=== PATIENT | female | born 1955 | race Caucasian/White ===

== ENCOUNTER 2021-04-21 12:59 | Emergency (ER) | payer MEDICARE, OTHER ==
[~2021-04-21] VITALS: Ht 160 cm; Wt 87.0 kg
[2021-04-21 13:05] VITALS: BP 117/78
--- NOTE | 2021-04-21 14:12 | RAD ---
CT Head W/O Contrast: History: Head and neck pain Comparison: none Axial images were obtained without contrast. The leon and white matter appears normal and symmetrical for the patients age. There is no mass effe ct, extraaxial fluid collections or hydrocephalus. There is no gross bleed. There is no focal loss of leon-white matter distinction to suggest acute ischemia, i.e. stroke. Impression: No acute findings. End impression CT C-Spine without contrast: Clinical History: Reason: neck pain / Spl. Instructions: / History: Technique: Axial helical images of the cervical spine were obtained without contrast, axial coronal and sagittal reconstruction was performed. Findings: There is no loss of vertebral body stature. There is no prevertebral soft tissue swelling. The vert ebral bodies are well aligned. There is straightening of the normal cervical lordosis which can be p ositional or could be chronic. The C1-C2 relationship is normal. The visualized osseous structures ap pear normal. Evaluation of the central canal is limited without contrast. There is multiple posterio r disc bulges resulting in flattening of the thecal sac. C2-C3: There is moderate to marked narrowing of the right neuroforamen. C3-C4 there is complete effacement of CSF anterior to the cord and severe narrowing of the left neuro foramen. C4-C5 there is a disc osteophytic ridge eccentric to the right causing complete effacement of CSF and impression on the anterior surface the cervical cord. This makes the patient susceptible to possible cord contusion. There is severe narrowing of the left neuroforamen. C5-C6: There is complete effacement CSF around cord and mild impression on the anterior surface the c ervical cord. There is marked narrowing of the neuroforamen bilaterally right worse than left. C6-C7: There is complete effacement of CSF around the cord and there is severe narrowing of the left neuroforamen. C7-T1: There is moderate narrowing of the neuroforamen left worse than right. Impression: Marked degenerative changes of multilevel central and neuroforaminal stenosis. No acute findings. End impression Clinical correlation suggested. PQRS Compliance Statement: One or more of the following individualized dose reduction techniques were utilized for this examinat ion: 1. Automated exposure control 2. Adjustment of the mA and/or kV according to patient size 3. Use of iterative reconstruction technique Electronically signed by: Jc Paiz III, MD (04/21/2021 2:10 PM) [facility]
--- NOTE | 2021-04-21 14:13 | RAD ---
EXAM: Lumbar spine CT without contrast; pelvis CT without contrast. HISTORY: Pain. TECHNIQUE: Computed tomographic images of the lumbar spine and pelvis were obtained without contrast. Multiplanar reformatting was performed. *One or more of the following individualized dose reduction techniques were utilized for this examina tion: 1. Automated exposure control. 2. Adjustment of the mA and/or kV according to patient size. 3. Use of iterative reconstruction technique. COMPARISON: None. FINDINGS: Lumbar spine: There is mild lumbar scoliosis. There is mild multilevel degenerative listhesis. There is degenerative endplate remodeling at multiple levels. There is disc space narrowing with Schmorl's node formation calcified ptosis primarily along the right aspect of L4-L5. This corresponds with the levels of maximum scoliotic concavity. There is no appendicitis. There is colonic diverticulosis. At L1-L2, there is a disc bulge and endplate remodeling. There is mild bilateral facet arthropathy. T here is mild retrolisthesis. There is mild central canal stenosis. At L2-L3, there is a disc bulge and endplate remodeling. There is mild right and [id number]-[id number] lef t facet arthropathy. There is grade 1 anterolisthesis. There is mild left foraminal stenosis. There i s mild central canal stenosis. At L3-L4, there is a disc bulge and endplate remodeling. There is moderate right and severe left face t arthropathy. There is a small focus of gas within the left lateral central canal due to vacuum phen omenon from the adjacent facet joint. There may be an associated synovial cyst in this location. Ther e is grade 1 anterolisthesis. There is mild left foraminal stenosis. There is moderate central canal stenosis. At L4-L5, there is a right foraminal to lateral disc protrusion and osteophyte complex superimposed o n a right lateral predominant disc bulge and endplate osteophytosis. There is moderate bilateral face t arthropathy. There is hypertrophy of the ligamentum flavum. There is slight retrolisthesis. There i s moderate bilateral foraminal stenosis. There is severe central canal stenosis. At L5-S1, there is a left foraminal to extra foraminal disc protrusion and osteophyte complex superim posed on a left lateral predominant disc bulge and endplate osteophytosis. There is moderate right an d mild left facet arthropathy. There is severe left foraminal stenosis. There is mild central canal s tenosis. Pelvis: There is no acute fracture. There is mild marginal acetabular and femoral head degenerative s ubchondral sclerosis and spurring. There is degenerative subchondral sclerosis and vacuum phenomenon involving the sacroiliac joints. There is no suspicious osseous lesion. IMPRESSION: 1. Multilevel degenerative change involving the lumbar spine, described in detail above. This results in significant stenosis at the aforementioned levels. 2. 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 3. Incidental colonic diverticulosis. Electronically signed by: Ratna Mario MD (04/21/2021 2:11 PM) [id number]
--- NOTE | 2021-04-21 14:16 | RAD ---
Examination: 3 views of the left knee HISTORY: History of left knee pain COMPARISON: None available FINDINGS: Left total knee arthroplasty changes in normal alignment. There is no acute fracture or dislocation i dentified. IMPRESSION: Left total knee arthroplasty changes in normal alignment. Electronically signed by: Adebayo Maldonado MD (04/21/2021 2:14 PM) [id number]
--- NOTE | 2021-04-21 14:22 | PHYS DOC ---
Past History Past Surgical History: Cholecystectomy, Hysterectomy, Knee Replacement Additional Past Surgical Histo: carpal tunnel General Adult EDM: Chief Complaint: MECHANICAL FALL HPI: HPI: 65-year-old female who denies any significant past medical history, presents the ED with her , (patient consents to his/her/their knowledge and involvement in pts' medical care), with complaints of low back pain, posterior neck pain and left knee pain after patient fell at the px [place]opping area [place] [employer] [place] Patient states she was wearing flip-flops when she slipped on a wet floor, "I was on the ground before I knew I fell." Patient denies any loss of consciousness. Does not take any routine medications, is not on any anticoagulants. Patient was not under the influence of any alcohol or drugs. No history of any prior blunt head injury or intracranial hemorrhage. Has anter ior left knee pain and is concerned for her prosthetic knee. Review of Systems: Review of Systems: Constitutional: Denies fever or chills or dizziness or lightheadedness Eyes: Denies change in visual acuity HENT: Denies nasal congestion or sore throat Respiratory: Denies cough or shortness of breath Cardiovascular: Denies chest pain or edema GI: Denies abdominal pain, nausea, vomiting, bloody stools or diarrhea : Denies saddle anesthesia or incontinence Musculoskeletal: Denies joint deformity or warmth Integument: Denies rash or diaphoresis Neurologic: Denies headache, focal weakness or sensory changes Endocrine: Denies polyuria or polydipsia Lymphatic: Denies swollen glands Psychiatric: Denies depression or anxiety Allergies: Allergies: Allergies Coded Allergies Type Severity Reaction Last Updated Verified meperidine Allergy Unknown 04/21/21 Yes prednisone Adverse Reaction Unknown 04/21/21 Yes Physical Exam: PE: Constitutional: Well developed, well nourished, no acute distress, non-toxic appearance. HENT: Normocephalic, atraumatic, no raccoon eyes, no septal hematoma, Eyes: PERRLA, EOMI, conjunctiva normal, no discharge, Neck: Normal range of motion, supple, no midline step offs, reports pain over C4/5 midline Cardiovascular: S1/2 present, regular rhythm Lungs & Thorax: Speaking in full sentences, bilateral equal chest rise, no tachypnea or increased work of breathing Abdomen: soft, no tenderness, Skin: Warm, dry, no erythema, no rash. [] Back: No midline step offs, cannot reproduce tenderness over L1-5, no CVA tenderness. [] Extremities: No tenderness, no cyanosis, no lower extremity edema, steady gait Neurologic: Alert and oriented X 3, normal motor function, normal sensory function, no focal deficits noted. [] Psychologic: Affect normal, judgement normal, mood normal. [] Current Patient Data: Vital Signs: Vital Signs Date Time Temp Pulse Resp B/P (MAP) Pulse Ox O2 Delivery O2 Flow Rate FiO2 04/21/21 13:05 98.7 65 16 117/78 (91) 97 EKG: EKG: [] Radiology/Procedures: Radiology/Procedures: IMAGING REPORT Signed PATIENT: GARCIA REICH LACCOUNT: [id number] : 1955 LOCATION: ER AGE: 65 SEX: F EXAM STATUS: REG ER ORD. PHYSICIAN: MATI KAUR DO REASON: neck pain PROCEDURE: CT HEAD AND CERVICAL SPINE WO CT Head W/O Contrast: History: Head and neck pain Comparison: none Axial images were obtained without contrast. The leon and white matter appears normal and symmetrical for the patients age. There is no mass effect, extraaxial fluid collections or hydrocephalus. There is no gross bleed. There is no focal loss of leon-white matter distinction to suggest acute ischemia, i.e. stroke. Impression: No acute findings. End impression CT C-Spine without contrast: Clinical History: Reason: neck pain / Spl. Instructions: / History: Technique: Axial helical images of the cervical spine were obtained without contrast, axial coronal and sagittal reconstruction was performed. Findings: There is no loss of vertebral body stature. There is no prevertebral soft tissue swelling. The vertebral bodies are well aligned. There is straightening of the normal cervical lordosis which can be positional or could be chronic. The C1-C2 relationship is normal. The visualized osseous structures appear normal. Evaluation of the central canal is limited without contrast. There is multiple posterior disc bulges resulting in flattening of the thecal sac. C2-C3: There is moderate to marked narrowing of the right neuroforamen. C3-C4 there is complete effacement of CSF anterior to the cord and severe narrowing of the left neuroforamen. C4-C5 there is a disc osteophytic ridge eccentric to the right causing complete effacement of CSF and impression on the anterior surface the cervical cord. This makes the patient susceptible to possible cord contusion. There is severe narrowing of the left neuroforamen. C5-C6: There is complete effacement CSF around cord and mild impression on the anterior surface the cervical cord. There is marked narrowing of the neuroforamen bilaterally right worse than left. C6-C7: There is complete effacement of CSF around the cord and there is severe narrowing of the left neuroforamen. C7-T1: There is moderate narrowing of the neuroforamen left worse than right. Impression: Marked degenerative changes of multilevel central and neuroforaminal stenosis. No acute findings. End impression Clinical correlation suggested. RS Compliance Statement: One or more of the following individualized dose reduction techniques were utilized for this examination: 1. Automated exposure control 2. Adjustment of the mA and/or kV according to patient size 3. Use of iterative reconstruction technique Electronically signed by: Laura Velez III, MD (04/21/2021 2:10 PM) [facility] DICTATED AND SIGNED BY: LAURA VELEZ III, MD DATE: 04/21/21 1355 CC: PCP,UNKNOWN; MATI KAUR DO ~MTH0 0 IMAGING REPORT Signed PATIENT: GARCIA REICH LACCOUNT: [id number] : 1955 LOCATION: ER AGE: 65 SEX: F EXAM STATUS: REG ER ORD. PHYSICIAN: MATI KAUR DO REASON: neck pain PROCEDURE: CT LUMBAR SPINE WO CONTRAST EXAM: Lumbar spine CT without contrast; pelvis CT without contrast. HISTORY: Pain. TECHNIQUE: Computed tomographic images of the lumbar spine and pelvis were obtained without contrast. Multiplanar reformatting was performed. *One or more of the following individualized dose reduction techniques were utilized for this examination: 1. Automated exposure control. 2. Adjustment of the mA and/or kV according to patient size. 3. Use of iterative reconstruction technique. COMPARISON: None. FINDINGS: Lumbar spine: There is mild lumbar scoliosis. There is mild multilevel degenerative listhesis. There is degenerative endplate remodeling at multiple levels. There is disc space narrowing with Schmorl's node formation calcified ptosis primarily along the right aspect of L4-L5. This corresponds with the levels of maximum scoliotic concavity. There is no appendicitis. There is colonic diverticulosis. At L1-L2, there is a disc bulge and endplate remodeling. There is mild bilateral facet arthropathy. There is mild retrolisthesis. There is mild central canal stenosis. At L2-L3, there is a disc bulge and endplate remodeling. There is mild right and [id number] left facet arthropathy. There is grade 1 anterolisthesis. There is mild left foraminal stenosis. There is mild central canal stenosis. At L3-L4, there is a disc bulge and endplate remodeling. There is moderate right and severe left facet arthropathy. There is a small focus of gas within the left lateral central canal due to vacuum phenomenon from the adjacent facet joint. There may be an associated synovial cyst in this location. There is grade 1 anterolisthesis. There is mild left foraminal stenosis. There is moderate central canal stenosis. At L4-L5, there is a right foraminal to lateral disc protrusion and osteophyte complex superimposed on a right lateral predominant disc bulge and endplate osteophytosis. There is moderate bilateral facet arthropathy. There is hypertrophy of the ligamentum flavum. There is slight retrolisthesis. There is moderate bilateral foraminal stenosis. There is severe central canal stenosis. At L5-S1, there is a left foraminal to extra foraminal disc protrusion and osteophyte complex superimposed on a left lateral predominant disc bulge and endplate osteophytosis. There is moderate right and mild left facet arthropathy. There is severe left foraminal stenosis. There is mild central canal stenosis. Pelvis: There is no acute fracture. There is mild marginal acetabular and femoral head degenerative subchondral sclerosis and spurring. There is degenerative subchondral sclerosis and vacuum phenomenon involving the sacroiliac joints. There is no suspicious osseous lesion. IMPRESSION: 1. Multilevel degenerative change involving the lumbar spine, described in detail above. This results in significant stenosis at the aforementioned levels. 2. 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 3. Incidental colonic diverticulosis. Electronically signed by: Ratna Best MD (04/21/2021 2:11 PM) [id number] DICTATED AND SIGNED BY: RATNA BEST MD DATE: 04/21/21 1400 CC: PCP,UNKNOWN; MATI KAUR DO ~MTH0 0 IMAGING REPORT Signed PATIENT: GARCIA REICH LACCOUNT: [id number] : 1955 LOCATION: ER AGE: 65 SEX: F EXAM STATUS: REG ER ORD. PHYSICIAN: MATI KAUR DO REASON: lefgt knee pain PROCEDURE: KNEE LEFT 3V Examination: 3 views of the left knee HISTORY: History of left knee pain COMPARISON: None available FINDINGS: Left total knee arthroplasty changes in normal alignment. There is no acute fracture or dislocation identified. IMPRESSION: Left total knee arthroplasty changes in normal alignment. Electronically signed by: Adebayo Maldonado MD (04/21/2021 2:14 PM) [id number] DICTATED AND SIGNED BY: ADEBAYO MALDONADO MD DATE: 04/21/21 1412 CC: PCP,UNKNOWN; MATI KAUR DO ~MTH0 0 Heart Score: C/O Chest Pain: No Risk Factors: Risk Factors: DM, Current or recent (<one month) smoker, HTN, HLP, family history of CAD, obesity. Risk Scores: Score 0 - 3: 2.5% MACE over next 6 weeks - Discharge Home Score 4 - 6: 20.3% MACE over next 6 weeks - Admit for Clinical Observation Score 7 - 10: 72.7% MACE over next 6 weeks - Early Invasive Strategies Course & Med Decision Making: Course & Med Decision Making Pertinent Labs and Imaging studies reviewed. (See chart for details) Concern for midline cervical and lumbar back pain in the absence of any neurologic deficits or radiculopathy.. Patient able to look left and right and touch her chin to her chest without any significant discomfort. Has a steady gait. Cannot make neck pain worse by pressing midline. Discussed medication options. Will discharge home with strict ED return precautions were given for neurologic deficits, severe pain repeat injury. Encouraged urgent outpatient follow-up with PMD and orthopedic surgery for management of lumbar disc herniations/definitive management of neck and back pain. Life-threatening processes were considered but are low suspicion at this time, given history, physical exam and ED workup. Pt was educated on all prescription medications and adverse effects. All patient's questions were answered and pt was stable at time of discharge. Life/limb-threatening differential includes but is not limited to, intracranial hemorrhage, diffuse axonal injury, spinal cord syndrome, unstable cervical fracture or SCIWORA, fractures or joint dislocations, neurovascular injuries, organ injury or laceration, pneumothorax, pneumoperitoneum, pericardial tamponade, unstable pelvic fracture, compartment syndrome, flail chest or respiratory distress, burn injury or asphyxiation I have spoken with the patient and/or caregivers. I explained the patient's condition, diagnoses and treatment plan based on the information available to me at this time. I have answered the patient and/or caregiver's questions and addressed any concerns. The patient and/or caregivers have a good understanding of patient's diagnosis, condition and treatment plan as can be expected at this point. Vital signs have been stable. Patient's condition is stable and appropriate for discharge from the emergency department. Patient will pursue further outpatient evaluation with primary care physician or other designated or consulting physician as outlined in the discharge instructions. The patient and/or caregivers are agreeable to this plan of care and follow-up instructions have been explained in detail. The patient and/or caregivers have received these instructions in written form and have expressed an understanding of the discharge instructions. The patient and/or caregivers are aware that any significant change of condition or worsening of symptoms should prompt immediate return to this or the closest emergency department or call to 911. Emery Disclaimer: Emery Disclaimer: This electronic medical record was generated, in whole or in part, using a voice recognition dictation system. Departure Departure: Impression: Primary Impression: Fall Additional Impressions: Neck pain Lumbar disc herniation Disposition: HOME / SELF CARE / HOMELESS Condition: STABLE Referrals: PCP,UNKNOWN (PCP) Follow up with your pcp in 1-2 days or [facility] [phone] OR [facility]-Dr. Padron [phone] Patient Instructions: Herniated Disk, Osteoarthritis, Soft Tissue Injury of the Neck Additional Instructions: FOLLOW UP WITH ORTHOPEDICS: For definitive management of neck and back pain [facility] [address] [facility], [address] [address] EMERGENCY DEPARTMENT GENERAL DISCHARGE INSTRUCTIONS Thank you for coming to [facility] (ED) today and trusting us with you care. We trust that you had a positivie experience in our Emergency Department. If you wish to speak to the department management, you may call the director at [phone]. YOUR FOLLOW UP INSTRUCTIONS ARE FOLLOWS: 1. Do you have a private Doctor? If you do not have a private doctor, please ask for a resource list of physicians or clinics that may be able to assist you with follow up care. 2. The Emergency Physician has interpreted your x-rays. The X-Ray specialist will also review them. If there is a change in the findings, you will be notified in 48 hours when at all possible. 3. A lab test or culture has been done, your results will be reviewed and you will be notified if you need a change in treatment. ADDITIONAL INSTRUCTIONS AND INFORMATION: 1. Your care today has been supervised by a physician who is specially trained in emergency care. Many problems require more than one evaluation for a complete diagnosis and treatment. We recommend that you schedule your follow up appointment as recommended to ensure complete treatment of you illness or injury. If you are unable to obtain follow up care and continue to have a problem, or if your condition worsens, we recommend that you return to the ED. 2. We are not able to safely determine your condition over the phone nor are we able to give sound medical advice over the phone. For these safety reasons, if you call for medical advice we will ask you to come to the ED for further evaluation. 3. If you have any questions regarding these discharge instructions please call the ED at [phone]. SAFETY INFORMATION: In the interest of safety, wellness, and injury prevention; we encourage you to wear your sealbelt, if you smoke; quite smoking, and we encourage family to use a protective helmet for bicycling and other sporting events that present an increased risk for head injury. IF YOUR SYMPTOMS WORSEN OR NEW SYMPTOMS DEVELOP, OR YOU HAVE CONCERNS ABOUT YOUR CONDITION; OR IF YOUR CONDITION WORSENS WHILE YOU ARE WAITING FOR YOUR FOLLOW UP APPOINTMENT; EITHER CONTACT YOUR PRIMARY CARE DOCTOR, THE PHYSICIAN WHOSE NAME AND NUMBER YOU WERE Amalia WOLF, OR RETURN TO THE ED IMMEDIATELY. Scripts Hydrocodone Bit/Acetaminophen (HYDROCODONE-APAP 5-325 ) 1 Each Tablet 1 TAB PO PRN Q6HRS PRN for PAIN for 4 Days, #16 TAB 0 Refills do NOT take with tylenol, alcohol or other sedatives or drive with this medication Prov: MATI KAUR DO 04/21/21 MATI KAUR DO Apr 21, 2021 14:22
[2021-04-21] MEDS ORDERED: diazePAM 5 MG TABLET. PO ONE (15:00)
[2021-04-21] MEDS ORDERED: diazePAM 5 MG TABLET. ONE (15:05)
[2021-04-21] MEDS ORDERED: HYDR-2155 PO ×2 (15:07→15:10)
== END 2021-04-21 15:40 | disposition home or self-care (01) ==
LOC: ER 12:59
DX: M51.26 Other intervertebral disc displacement, lumbar region (principal); M54.2 Cervicalgia; Z90.49 Acquired absence of other specified parts of digestive tract; Z90.710 Acquired absence of both cervix and uterus; Z98.890 Other specified postprocedural states; W19.XXXA Unspecified fall, initial encounter; Y93.89 Activity, other specified; Y92.89 Other specified places as the place of occurrence of the external cause; Y99.8 Other external cause status
CPT/HCPCS: 70450; 72125; 72131; 72192; 73562; 99285-25